=== PATIENT | male | born 1965 | race African-American/Black ===

== ENCOUNTER 2016-08-29 07:29 | Emergency (ER) | payer BC | END 2016-08-29 09:00 | disposition home or self-care (01) | LOC: D.ER 07:29 | DX: D57.1 Sickle-cell disease without crisis (principal); F17.200 Nicotine dependence, unspecified, uncomplicated ==

== ENCOUNTER 2016-08-31 02:14 | Emergency (ER) | payer BC ==
[2016-08-31 03:07] LABS: BASOPHILS 0.2 % (0.0-2.0); HEMATOCRIT 35.8 % (42.0-54.0); HEMOGLOBIN 12.9 g/dL (13.5-17.5); IMMATURE GRANULOCYTES 0.5 % (0-5); MCH 28.9 pg (26.0-34.0); MCV 80.1 fL (80.0-100.0); MONOCYTES 7.1 % (2-11); NEUTROPHILS 56.2 % (40-80); PLATELET COUNT 57 10x3/uL (130-400); RBC 4.47 10x6/uL (4.20-6.10); RDW 20.6 % (11.5-14.5); WBC 4.1 10x3/uL (4.8-10.8)
[2016-08-31 03:16] LABS: ALBUMIN 4.4 g/dL (3.4-5.0); ALKALINE PHOSPHATASE 117 U/L (46-116); ALT (SGPT) 31 U/L (10-68); BILIRUBIN - TOTAL 1.69 mg/dL (0.2-1.3); CALC OSMOLALITY 263 mosm/kg (275-300); CALCIUM 9.7 mg/dL (8.5-10.1); CARBON DIOXIDE 27.6 mmol/L (21.0-32.0); CHLORIDE - SERUM 96 mmol/L (98-107); CREATININE - SERUM 0.8 mg/dL (0.6-1.3); GLUCOSE 100 mg/dL (74-106); POTASSIUM - SERUM 3.7 mmol/L (3.5-5.1); PROTEIN - SERUM 8.5 g/dL (6.4-8.2); SODIUM 133 mmol/L (136-145); UREA NITROGEN 7 mg/dL (7-18); eGFR NON AFRICAN AMERICAN > 90 mL/min (90-120)
[2016-08-31 03:20] LABS: CREATINE KINASE 95 UL (21-232)
[2016-08-31 03:31] LABS: APPEARANCE CLEAR (CLEAR); BILIRUBIN NEGATIVE (NEGATIVE); COLOR DK YELLOW (YELLOW); GLUCOSE NEGATIVE (NEGATIVE); KETONE NEGATIVE (NEGATIVE); LEUKOCYTE ESTERASE TRACE (NEGATIVE); NITRITE NEGATIVE (NEGATIVE); PH 5.5 (5.0-6.0); PROTEIN 3+ mg/dL (NEGATIVE); SPECIFIC GRAVITY 1.015 (1.005-1.020); UROBILINOGEN NORMAL (NORMAL)
[2016-08-31 03:34] LABS: BACTERIA MODERATE /hpf (NONE SEEN); EPITHELIAL CELLS OCC /hpf (0-5); RED CELLS - URINE 0-5 /hpf (0-5); WHITE CELLS - URINE 0-5 /hpf (0-5)
[2016-08-31 03:35] LABS: AMORPHOUS SEDIMENT <1+ /lpf (NONE SEEN); GRANULAR CAST RARE /lpf (NONE SEEN); HYALINE CAST RARE /lpf (NONE SEEN)
[2016-08-31 03:36] LABS: UDS - AMPHET NEGATIVE QUAL (NEGATIVE); UDS - BARB NEGATIVE QUAL (NEGATIVE); UDS - BENZO NEGATIVE QUAL (NEGATIVE); UDS - COCAINE NEGATIVE QUAL (NEGATIVE); UDS - METH NEGATIVE QUAL (NEGATIVE); UDS - OPIATE POSITIVE QUAL (NEGATIVE); UDS - PCP NEGATIVE QUAL (NEGATIVE); UDS - THC POSITIVE QUAL (NEGATIVE)
[2016-08-31 09:22] LABS: PATH REVIEW PERIPHERAL SMEAR REVIEWED
== END 2016-08-31 05:15 | disposition home or self-care (01) ==
LOC: D.ER 02:14
PROVIDERS: Emergency Medicine
DX: D64.9 Anemia, unspecified (principal); D69.6 Thrombocytopenia, unspecified; R52 Pain, unspecified; F19.10 Other psychoactive substance abuse, uncomplicated; D57.1 Sickle-cell disease without crisis; F17.200 Nicotine dependence, unspecified, uncomplicated

== ENCOUNTER 2018-03-18 16:23 | Emergency (ER) | payer BC ==
[~2018-03-18] VITALS: Ht 185.4 cm; Wt 118.2 kg
[2018-03-18 16:54] VITALS: Ht 185.4 cm; Wt 118.2 kg
[2018-03-18] MEDS ORDERED: INSULIN PEN (16:56)
[2018-03-18] MEDS ORDERED: GLUCOPHAGE500 MG PO (16:56)
[2018-03-18] MEDS ORDERED: BLOOD PRESSURE MED (16:56)
[2018-03-18 17:27] LABS: BASOPHILS 0.3 % (0-2); EOSINOPHILS 0.8 % (0-7); HEMOGLOBIN 10.8 g/dL (13.5-17.5); IMMATURE GRANULOCYTES 0.3 % (0-5); LYMPHOCYTES 37.1 % (15-50); MCH 29.2 pg (26.0-34.0); MCHC 34.8 g/dL (31.0-37.0); MCV 83.8 fL (80.0-100.0); MONOCYTES 4.2 % (2-11); NEUTROPHILS 57.3 % (40-80); PLATELET COUNT 52 10x3/uL (130-400); RDW 21.8 % (11.5-14.5); WBC 3.9 10x3/uL (4.8-10.8)
[2018-03-18 17:28] LABS: APPEARANCE CLEAR (CLEAR); COLOR YELLOW (YELLOW)
[2018-03-18 17:29] LABS: BILIRUBIN NEGATIVE (NEGATIVE); GLUCOSE 1000 mg/dL (NEGATIVE); KETONE NEGATIVE (NEGATIVE); NITRITE NEGATIVE (NEGATIVE); PROTEIN TRACE mg/dL (NEGATIVE); UROBILINOGEN NORMAL (NORMAL)
[2018-03-18 17:33] LABS: BACTERIA FEW /hpf (NONE SEEN); EPITHELIAL CELLS RARE /hpf (0-5); RED CELLS - URINE RARE /hpf (0-5); WHITE CELLS - URINE OCC /hpf (0-5)
[2018-03-18 17:40] LABS: KETONE - SERUM NEGATIVE (NEGATIVE)
[2018-03-18 17:47] LABS: ALBUMIN 3.7 g/dL (3.4-5.0); ALKALINE PHOSPHATASE 133 U/L (46-116); ALT (SGPT) 85 U/L (10-68); BILIRUBIN - TOTAL 1.59 mg/dL (0.2-1.3); CALC OSMOLALITY 274 mosm/kg (275-300); CALCIUM 9.2 mg/dL (8.5-10.1); CHLORIDE - SERUM 98 mmol/L (98-107); CREATININE - SERUM 0.8 mg/dL (0.6-1.3); POTASSIUM - SERUM 4.4 mmol/L (3.5-5.1); SODIUM 131 mmol/L (136-145); UREA NITROGEN 8 mg/dL (7-18); eGFR NON AFRICAN AMERICAN > 90 mL/min (90-120)
[2018-03-18 17:51] LABS: GLUCOSE 354 mg/dL (74-106)
[2018-03-18 20:08] VITALS: BP 144/99
== END 2018-03-18 20:08 | disposition home or self-care (01) ==
LOC: D.ER 16:23
PROVIDERS: Family Medicine
DX: E11.65 Type 2 diabetes mellitus with hyperglycemia (principal); Z79.4 Long term (current) use of insulin; I10 Essential (primary) hypertension; F17.200 Nicotine dependence, unspecified, uncomplicated

== ENCOUNTER 2019-09-04 12:22 | Emergency (ER) | payer OTHER ==
[~2019-09-04] VITALS: Ht 185.4 cm; Wt 113.6 kg
[~2019-09-04 12:22] MED LIST: BLOOD PRESSURE MED; GLUCOPHAGE500 MG PO; INSULIN PEN
[2019-09-04 12:32] VITALS: Ht 185.4 cm; Wt 113.6 kg
[2019-09-04] MEDS ORDERED: IPRATROPIUM BRO15 M1 NASAL (13:54)
[2019-09-04] MEDS ORDERED: CIPRODEX OTIC7.5 ML RIGHT EAR (13:54)
[2019-09-04 14:15] VITALS: BP 135/65
== END 2019-09-04 14:16 | disposition home or self-care (01) ==
LOC: D.ER 12:22
DX: H60.91 Unspecified otitis externa, right ear (principal); H92.01 Otalgia, right ear; E11.9 Type 2 diabetes mellitus without complications; I10 Essential (primary) hypertension; Z72.0 Tobacco use; Z79.84 Long term (current) use of oral hypoglycemic drugs